=== PATIENT | female | born 1980 | race Caucasian/White ===

== ENCOUNTER 2019-09-13 12:43 | Emergency (ER) | payer OTHER ==
[~2019-09-13] VITALS: Ht 167.6 cm; Wt 95.0 kg
[2019-09-13 13:12] VITALS: Ht 167.6 cm; Wt 95.0 kg
[2019-09-13] MEDS ORDERED: ALDOMET250 MG PO (13:13)
[2019-09-13] MEDS ORDERED: PRENAVITE1 TAB PO (13:13)
[2019-09-13 13:37] LABS: BASOPHILS 0.1 % (0-2); EOSINOPHILS 0.9 % (0-7); HEMATOCRIT 40.9 % (36.0-48.0); HEMOGLOBIN 14.2 g/dL (12-16); IMMATURE GRANULOCYTES 0.3 % (0-5); LYMPHOCYTES 13.9 % (15-50); MCH 29.4 pg (26.0-34.0); MCHC 34.7 g/dL (31.0-37.0); MCV 84.7 fL (80.0-100.0); MEAN PLATELET VOLUME 10.1 fL (7.4-10.4); MONOCYTES 4.1 % (2-11); NEUTROPHILS 80.7 % (40-80); PLATELET COUNT 226 10x3/uL (130-400); RBC 4.83 10x6/uL (4.00-5.40); RDW 13.8 % (11.5-14.5); WBC 18.7 10x3/uL (4.8-10.8)
[2019-09-13 13:48] LABS: BILIRUBIN NEGATIVE (NEGATIVE); GLUCOSE NEGATIVE (NEGATIVE); KETONE MODERATE mg/dL (NEGATIVE); NITRITE NEGATIVE (NEGATIVE); SPECIFIC GRAVITY 1.015 (1.005-1.020); UROBILINOGEN NORMAL (NORMAL)
[2019-09-13 13:50] LABS: CALC OSMOLALITY 261 mosm/kg (275-300); CALCIUM 8.3 mg/dL (8.5-10.1); CARBON DIOXIDE 27.2 mmol/L (21.0-32.0); CHLORIDE - SERUM 99 mmol/L (98-107); CREATININE - SERUM 0.6 mg/dL (0.6-1.3); GLUCOSE 105 mg/dL (74-106); POTASSIUM - SERUM 3.5 mmol/L (3.5-5.1); SODIUM 132 mmol/L (136-145); UREA NITROGEN 5 mg/dL (7-18); eGFR NON AFRICAN AMERICAN > 90 mL/min (90-120)
[2019-09-13 13:51] LABS: HCG SERUM POSITIVE (NEGATIVE)
[2019-09-13] MEDS ORDERED: DULCOLAX STOOL100 MG PO (14:09)
[2019-09-13 14:18] LABS: ALKALINE PHOSPHATASE 94 U/L (30-120); ALT (SGPT) 14 U/L (10-68); AMYLASE - SERUM 295 U/L (25-115); BILIRUBIN - TOTAL 0.18 mg/dL (0.2-1.3); HCG - QUANTITATIVE (MATERNAL) 10666 mIU/mL; LIPASE 1077 U/L (73-393); PROTEIN - SERUM 7.2 g/dL (6.4-8.2)
[2019-09-13 14:40] VITALS: BP 144/65
== END 2019-09-13 14:39 | disposition home or self-care (01) ==
LOC: D.ER 12:43
PROVIDERS: Family Medicine
DX: O26.892 Other specified pregnancy related conditions, second trimester (principal); Z3A.18 18 weeks gestation of pregnancy; K59.00 Constipation, unspecified; R10.9 Unspecified abdominal pain; I10 Essential (primary) hypertension

== ENCOUNTER 2019-09-27 02:49 | Outpatient (CLI) | payer OTHER ==
[~2019-09-27 02:49] MED LIST: ALDOMET250 MG PO; DULCOLAX STOOL100 MG PO; PRENAVITE1 TAB PO
[2019-09-27 04:59] LABS: HEMATOCRIT 40.7 % (36.0-48.0); HEMOGLOBIN 13.8 g/dL (12-16); MCH 29.1 pg (26.0-34.0); MCHC 33.9 g/dL (31.0-37.0); MCV 85.9 fL (80.0-100.0); MEAN PLATELET VOLUME 10.6 fL (7.4-10.4); PLATELET COUNT 247 10x3/uL (130-400); RBC 4.74 10x6/uL (4.00-5.40); RDW 13.6 % (11.5-14.5); WBC 21.3 10x3/uL (4.8-10.8)
[2019-09-27 05:06] LABS: GLUCOSE 100 mg/dL (NEGATIVE); NITRITE NEGATIVE (NEGATIVE); SPECIFIC GRAVITY 1.025 (1.005-1.020)
[2019-09-27 05:07] LABS: BILIRUBIN NEGATIVE (NEGATIVE); KETONE NEGATIVE (NEGATIVE); UROBILINOGEN NORMAL (NORMAL)
[2019-09-27 05:10] LABS: BACTERIA MANY /hpf (NEGATIVE); EPITHELIAL CELLS 0-5 /hpf (0-5); RED CELLS - URINE 0-5 /hpf (0-5); WHITE CELLS - URINE 0-5 /hpf (NEGATIVE)
[2019-09-27 05:42] LABS: LIPASE 1208 U/L (73-393)
[2019-09-27 05:43] LABS: AMYLASE - SERUM 429 U/L (25-115)
[2019-09-27 05:45] LABS: EOSINOPHILS 5 % (0-7); LYMPHOCYTES 10 % (15-50); MONOCYTES 4 % (2-11); NEUTROPHILS 78 % (40-80); PLATELET ESTIMATE NORMAL
[2019-09-27 09:48] LABS: ALKALINE PHOSPHATASE 119 U/L (30-120); ALT (SGPT) 16 U/L (10-68); BILIRUBIN - TOTAL 0.43 mg/dL (0.2-1.3); CALC OSMOLALITY 264 mosm/kg (275-300); CARBON DIOXIDE 25.3 mmol/L (21.0-32.0); CHLORIDE - SERUM 99 mmol/L (98-107); CREATININE - SERUM 0.7 mg/dL (0.6-1.3); GLUCOSE 104 mg/dL (74-106); POTASSIUM - SERUM 3.5 mmol/L (3.5-5.1); PROTEIN - SERUM 6.6 g/dL (6.4-8.2); SODIUM 134 mmol/L (136-145); UREA NITROGEN 4 mg/dL (7-18); eGFR NON AFRICAN AMERICAN > 90 mL/min (90-120)
[2019-09-27 16:38] VITALS: BMI 33.8
== END 2019-09-27 18:45 ==
LOC: D.LDO 02:49 → D.LD 09:27 → D.LDO 18:45
PROVIDERS: Surgery; ATTEND Obstetrics & Gynecology
DX: O26.899 Other specified pregnancy related conditions, unspecified trimester (principal); Z3A.00 Weeks of gestation of pregnancy not specified; R10.9 Unspecified abdominal pain; R11.2 Nausea with vomiting, unspecified

== ENCOUNTER 2019-11-15 09:59 | Outpatient (CLI) | payer OTHER ==
[2019-11-15 10:52] LABS: BASOPHILS 0.2 % (0-2); EOSINOPHILS 1.9 % (0-7); HEMATOCRIT 38.1 % (36.0-48.0); HEMOGLOBIN 12.8 g/dL (12-16); IMMATURE GRANULOCYTES 0.6 % (0-5); LYMPHOCYTES 11.2 % (15-50); MCH 29.4 pg (26.0-34.0); MCHC 33.6 g/dL (31.0-37.0); MCV 87.4 fL (80.0-100.0); MEAN PLATELET VOLUME 10.2 fL (7.4-10.4); MONOCYTES 3.6 % (2-11); NEUTROPHILS 82.5 % (40-80); PLATELET COUNT 213 10x3/uL (130-400); RBC 4.36 10x6/uL (4.00-5.40); RDW 13.8 % (11.5-14.5); WBC 19.2 10x3/uL (4.8-10.8)
[2019-11-15 11:05] LABS: CALC OSMOLALITY 263 mosm/kg (275-300); CALCIUM 7.9 mg/dL (8.5-10.1); CARBON DIOXIDE 21.8 mmol/L (21.0-32.0); CHLORIDE - SERUM 101 mmol/L (98-107); CREATININE - SERUM 0.8 mg/dL (0.6-1.3); POTASSIUM - SERUM 3.1 mmol/L (3.5-5.1); SODIUM 131 mmol/L (136-145); UREA NITROGEN 5 mg/dL (7-18); eGFR NON AFRICAN AMERICAN 85 mL/min (90-120)
[2019-11-15 11:08] LABS: ALBUMIN 2.6 g/dL (3.4-5.0); ALKALINE PHOSPHATASE 114 U/L (30-120); ALT (SGPT) 12 U/L (10-68); GLUCOSE 166 mg/dL (74-106); PROTEIN - SERUM 6.3 g/dL (6.4-8.2); URIC ACID 3.3 mg/dL (2.6-7.2)
[2019-11-15 11:13] LABS: BILIRUBIN NEGATIVE (NEGATIVE); GLUCOSE NEGATIVE (NEGATIVE); KETONE NEGATIVE (NEGATIVE); NITRITE NEGATIVE (NEGATIVE); SPECIFIC GRAVITY 1.005 (1.005-1.020); UROBILINOGEN NORMAL (NORMAL)
[2019-11-16 14:37] LABS: PROTEIN - URINE 9.5 mg/dL (0.0-11.9)
== END 2019-11-15 12:23 | disposition home or self-care (01) ==
LOC: D.LDO 09:59
PROVIDERS: ATTEND Obstetrics & Gynecology
DX: O16.2 Unspecified maternal hypertension, second trimester (principal); Z3A.27 27 weeks gestation of pregnancy

== ENCOUNTER 2020-01-17 21:28 | Inpatient (IN) | payer OTHER ==
[~2020-01-17] VITALS: Ht 167.6 cm; Wt 95.0 kg
[2020-01-17 21:43] LABS: UDS - AMPHET NEGATIVE QUAL (NEGATIVE); UDS - BARB NEGATIVE QUAL (NEGATIVE); UDS - BENZO NEGATIVE QUAL (NEGATIVE); UDS - COCAINE NEGATIVE QUAL (NEGATIVE); UDS - OPIATE NEGATIVE QUAL (NEGATIVE); UDS - PCP NEGATIVE QUAL (NEGATIVE); UDS - THC NEGATIVE QUAL (NEGATIVE)
[2020-01-17 21:52] LABS: HEMATOCRIT 38.6 % (36.0-48.0); HEMOGLOBIN 13.3 g/dL (12-16); MCH 29.8 pg (26.0-34.0); MCHC 34.5 g/dL (31.0-37.0); MCV 86.5 fL (80.0-100.0); MEAN PLATELET VOLUME 10.4 fL (7.4-10.4); PLATELET COUNT 161 10x3/uL (130-400); RBC 4.46 10x6/uL (4.00-5.40); RDW 13.9 % (11.5-14.5); WBC 27.3 10x3/uL (4.8-10.8)
[2020-01-17 22:10] LABS: ALBUMIN 2.4 g/dL (3.4-5.0); BILIRUBIN - TOTAL 0.28 mg/dL (0.2-1.3); CALCIUM 8.6 mg/dL (8.5-10.1); CARBON DIOXIDE 20.7 mmol/L (21.0-32.0); CREATININE - SERUM 1.1 mg/dL (0.6-1.3); POTASSIUM - SERUM 3.7 mmol/L (3.5-5.1); PROTEIN - SERUM 6.5 g/dL (6.4-8.2)
[2020-01-17 22:20] LABS: EOSINOPHILS 3 % (0-7); LYMPHOCYTES 14 % (15-50); MONOCYTES 6 % (2-11); NEUTROPHILS 71 % (40-80); PLATELET ESTIMATE NORMAL
--- NOTE | 2020-01-17 22:54 | NUR ---
NOTIFIED OF PT REQUEST FOR PAIN MED AND D/W MD CTX PATTERN EVERY 1 MIN. NEW ORDERS NOTED TO DC CYTOTEC
[2020-01-17 23:02] VITALS: BP 111/59; Ht 167.6 cm; Wt 95.0 kg
[2020-01-18 03:02] LABS: BILIRUBIN NEGATIVE (NEGATIVE); GLUCOSE 100 mg/dL (NEGATIVE); KETONE NEGATIVE (NEGATIVE); NITRITE NEGATIVE (NEGATIVE); UROBILINOGEN NORMAL (NORMAL)
[2020-01-18 03:03] LABS: BACTERIA MODERATE /hpf (NEGATIVE); EPITHELIAL CELLS 0-5 /hpf (0-5); RED CELLS - URINE 0-5 /hpf (0-5); WHITE CELLS - URINE 0-5 /hpf (NEGATIVE)
[2020-01-18 03:04] LABS: CALCIUM OXALATE CRYSTALS 0-5 /hpf (NONE SEEN)
[2020-01-18 05:09] LABS: INR 1.24 (0.85-1.17); PROTIME 15.5 SECONDS (11.6-15.0)
[2020-01-18 05:14] LABS: FIBRINOGEN 153 mg/dL (239-481); RBC 3.42 10x6/uL (4.00-5.40); WBC 36.7 10x3/uL (4.8-10.8)
[2020-01-18 05:15] LABS: BASOPHILS 0.1 % (0-2); CALCIUM 8.2 mg/dL (8.5-10.1); CARBON DIOXIDE 24.6 mmol/L (21.0-32.0); CREATININE - SERUM 1.2 mg/dL (0.6-1.3); EOSINOPHILS 0.1 % (0-7); HEMATOCRIT 29.6 % (36.0-48.0); IMMATURE GRANULOCYTES 2.3 % (0-5); LYMPHOCYTES 5.8 % (15-50); MCH 29.2 pg (26.0-34.0); MCHC 33.8 g/dL (31.0-37.0); MCV 86.5 fL (80.0-100.0); MEAN PLATELET VOLUME 10.4 fL (7.4-10.4); MONOCYTES 3.5 % (2-11); NEUTROPHILS 88.2 % (40-80); PLATELET COUNT 117 10x3/uL (130-400)
[2020-01-18 05:21] LABS: ALBUMIN 2.1 g/dL (3.4-5.0); BILIRUBIN - TOTAL 0.2 mg/dL (0.2-1.3); PROTEIN - SERUM 5.4 g/dL (6.4-8.2)
[2020-01-18 05:23] LABS: ANION GAP 13.1 mmol/L (8-16); POTASSIUM - SERUM 4.7 mmol/L (3.5-5.1)
[2020-01-18 05:43] LABS: D-DIMER-QUANTITATIVE > 20.00 ug/mLFEU (0.20-0.54)
[2020-01-18 07:22] VITALS: BP 121/64
--- NOTE | 2020-01-18 07:22 | NUR ---
SHIFT ASSESSMENT COMPLETED PER FLOWSHEET. VSS. FUNDUS FIRM, MIDLINE AND U1 WITH MODERATE AMT RUBRA LOCHIA, NO CLOTS NOTED. PERICARE DONE. PADS AND CHUX CHANGED. PT ABLE TO [place]. DENIES PAIN AND NEEDS. SIGNIFICANT OTHER IN ROOM LOOKING AND IN [facility] UNDER LIGHT. SIGNIFICANT OTHER ASKS STAFF TO LOOK AT 'S COLOR AND CHECK FOR HEARTBEAT, STATES HE'S STILL WARM, EXPLAINED TO THAT WARMTH IS FROM LIGHT AND HEARTBEAT THAT HE IS FEELING IS LIKELY HIS OWN PULSE. STATES THAT HE HAS SEEN INFANT OPEN EYES AND MOVE. PT REASSURES SIGNIFICANT OTHER THAT HAS PASSED AND IS NOT LIVING. DISCUSSED MOVING TO NEW ROOM WITH PT, VERBALOZES UNDERSTANDING AND AGREEMENT. DISCUSSED WITH BOTH TAKING TO COOLER, FOB REFUSES. STATES THAT HE IS GOING TO KEEP WITH HIM. PT AMBULATORY TO ROOM 1276 FOR CONTINUED PP CARE. ORIENTED TO ROOM, CALL LIGHT USE AND BR, VERBALIZES UNDERSTANDING. BED IN LOW POSITION WITH SRUP X2. CALL LIGHT AND PHONE WITHIN REACH. WILL CONTINUE TO MONITOR.
--- NOTE | 2020-01-18 07:43 | NUR ---
SITTING IN HIGH FOWLERS POSITION. BECOMES TEARFUL. QUESTIONS REGARDING ORGAN DONATION ANSWERED AND REINFORCED WITH PT THAT [employer] PLANT MANAGER WOULD HAVE TO BE CONTACTED TO ANSWER MOST QUESTIONS REGARDING LENGTH OF TIME THAT TISSUE IS HARVESTABLE, VERBALIZES UNDERSTANDING. CHAPLE SERVICES OFFERED AND DECLINED AT THIS TIME. STATES THAT SHE HAS ACCEPTED INFANT LOSS BUT IS CONCERNED FOR SIGNIFICANT OTHER. PT VERBALIZES THAT SHE FEELS HIS PARENTS MAY HAVE TO COME TO HELP SUPPORT HIM AND TO "GET HIM TO REALITY OF WHAT HAS HAPPENED." STATES THAT SHE KNOWS VISITOR RESTRICTIONS ARE IN PLACE, CONTACTED TOÑO, MILL OPERATOR AND DISCUSSED SITUATION. STATES THAT EXPECTION CAN BE MADE AND SHE WOULD NOTIFY BOTH ENTRANCES. PT NOTIFIED AND VERBALIZES APPRECIATION.
--- NOTE | 2020-01-18 08:07 | NUR ---
ROBERTA POLYGRAPH OPERATOR CALLS UNIT IN REGARDS TO INFANT TO DISCUSS IF HAD BEEN PLACED IN COOLER. FABIAN, DIRECTOR DATA ANALYTICS INFORMED THAT FOB HAD NOT GIVEN PERMISSION FOR INFANT TO BE TAKE FROM ROOM. PER FABIAN, IS BEING RELEASED AND IS UNABLE TO BE USED FOR DONATION. WILL NOTIFY PT.
--- NOTE | 2020-01-18 08:32 | NUR ---
UP TO VOID. DENIES DIZZINESS AND LIGHTHEADEDNESS. VOIDED 700 MLS WITH CLOT THE SIZE OF HARD BOILED EGG PASSED. BACK TO BED, CONTINUES TO DENY DIZZINESS/LIGHTHEADEDNESS. FUNDUS FIRM, MIDLINE AND U1 WITH SMALL RUBRA LOCHIA, NO CLOTS NOTED TO PERIPADS. SIGNFICANT OTHER NOT IN ROOM AT THIS TIME, STATES THAT SHE ASK HIM TO LEAVE TO CARE FOR OLDER CHILD AT HOME. QUESTIONS REGARDING VISITOR AND VISITATION ANSWERED, PT VERBALIZES UNDERSTANDING STATES THAT HER MOTHER IS GOING TO COME HELP HER MAKE DECISIONS. PT ALSO INFORMED THAT [facility] HAD RELEASED INFANT AND INFANT WAS NO LONGER A CANDIDATE FOR ORGAN/TISSUE DONATION D/T NOT BEING COOLED, VERBALIZES UNDERSTANDING AND DENIES WANTING TO SPEAK WITH [facility] ADULT BASIC EDUCATION TEACHER. INFANT REMAINS IN ROOM WITH PT D/T PT REQUEST FOR BONDING TIME, STATES "I'VE ONLY GOTTEN TO HOLD HIM FOR A FEW MINUTES BECAUSE I WAS TRYING TO LET JAD HAVE HIS TIME WITH HIM." LIGHTS OFF PER PT REQUEST. DENIES NEEDS. BED IN LOW POSITION WITH SRUP X2. CALL LIGHT AND PHONE WITHIN REACH. WILL CONTINUE TO MONITOR.
--- NOTE | 2020-01-18 09:21 | NUR ---
DR. RAMIREZ CALLS UNIT, UPDATE ON PT STATUS GIVEN. PER DR. RAMIREZ HE WILL ROUND ON PT FOLLOWING COMPLETION OF CLINIC.
--- NOTE | 2020-01-18 10:14 | NUR ---
PT'S MOTHER ON UNIT AND TAKEN TO ROOM. PT JUST PICKED UP FROM [facility]. REQUEST TIME TO [place] WITH WITH HER MOTHER IN ROOM PRIOR TO RN TAKING V/S. DENIES PAIN AND NEEDS. BED IN LOW POSITION WITH SRUP X2. CALL LIGHT AND PHONE WITHIN REACH. WILL CONTINUE TO MONITOR.
[2020-01-18 10:38] VITALS: BP 135/66
--- NOTE | 2020-01-18 10:38 | NUR ---
UP TO VOID. VOIDED 700 MLS IN HAT, NO CLOTS NOTED. PERICARE DONE PER PT. VSS. FUNDUS FIRM, MIDLINE AND U1 WITH SMALL RUBRA LOCHIA, NO CLOTS NOTED. PT REQUEST PAIN MEDICATION AT THIS TIME D/T PAIN WITH FUNDAL CHECK. STEADY GAIT NOTED. DENIES DIZZINESS AND LIGHTHEADEDNESS. PT'S MOTHER AT BEDSIDE, SUPPORTIVE AND ATTENTIVE. PT REQUEST LIST OF HOME PHONE NUMBERS TO CALL TO ASK QUESTIONS. STATES THAT SIGNIFICANT OTHER REMAINS AT HOME CARING FOR TODDLER AND SHE WOULD LIKE TO GET ARRANGEMENTS MADE BHARGAV. TO COOLER PER MOM REQUEST. STATES THAT SHE WOULD LIKE TO SEE INFANT AND WILL NOTIFY RN WHEN READY TO VIEW AGAIN.
--- NOTE | 2020-01-18 11:41 | NUR ---
BACK TO ROOM. LIST OF HOMES PROVIDED TO PT AND HER MOTHER. STATES THAT SIGNIFICANT OTHER WILL BE COMING BACK TO UNIT TO DISCUSS OPTIONS AND ASSIST WITH MAKING ARRANGEMENTS.
--- NOTE | 2020-01-18 12:26 | NUR ---
REQUESTS TO SHOWER FOLLOWING EATING LUNCH. STATES THAT HER MOTHER WILL REMAIN IN ROOM AND AT BEDSIDE WITH HER. REQUESTS TO TAKE NORCO FOLLOWING SHOWER. DENIES NEEDS AT THIS TIME. WILL CONTINUE TO MONITOR. PT ALSO REQUESTING TO D/C HOME BHARGAV, WILL DISCUSS WITH DR. RAMIREZ WHEN HE ROUNDS.
--- NOTE | 2020-01-18 13:01 | NUR ---
UP IN SHOWER. PT'S MOTHER REMAINS IN ROOM. DENIES DIZZINESS. STEADY GAIT NOTED. LINENS CHANGED.
--- NOTE | 2020-01-18 14:03 | NUR ---
AMBULATORY IN [place]. PT REQUESTED RN CALL [facility] AND [facility] TO FIND OUT COST OF CREMATION AND BURIAL AND IF CREMENTATORY IS PRESENT ON SITE. BOTH HOMES CONTACTED IN PT ROOM AND QUESTIONS AND ANSWERS REVIEWED WITH PT. VERBALIZES UNDERSTANDING. REQUESTS TO DISCUSS WITH MOTHER AND NOTIFY RN OF DECISION AT LATER TIME.
--- NOTE | 2020-01-18 14:53 | NUR ---
BACK TO ROOM. PT CALLS RN TO ROOM, REQUESTS THAT [facility] BE CONTACTED FOR REMOVAL OF INFANT. DENIES PAIN AND NEEDS AT THIS TIME. REFUSES V/S AT THIS TIME, STATES "I FEEL FINE AND NEED TO MAKE A FEW PHONE CALLS." PT'S MOTHER REMAINS WITH HER, SUPPORTIVE AND ATTENTIVE TO PT AND PT NEEDS.
--- NOTE | 2020-01-18 14:55 | NUR ---
SPOKE WITH [facility] REP. NOTIFIED OF NEED FOR REMOVAL OF . WILL SEND STAFF FOR REMOVAL.
--- NOTE | 2020-01-18 15:21 | NUR ---
[facility]LY[facility] BOOTHE REP ON UNIT. REQUESTS TO SPEAK WITH PT AND TAKEN TO ROOM.
--- NOTE | 2020-01-18 15:43 | NUR ---
CARLYN GARCIA REP OFF UNIT WITH INFANT.
--- NOTE | 2020-01-18 16:01 | NUR ---
C/O ABD CRAMPING 4-11/03. REQUESTS NORCO AND GIVEN PER REQUEST. DENIES ADDITIONAL NEEDS. LT AND RT A/C PIV, AND L FA PIV'S REMOVED, ALL WITH TIPS INTACT AND BANDAID APPLIED. DENIES ADDITIONAL NEEDS.
--- NOTE | 2020-01-18 16:30 | NUR ---
WRITTEN AND VERBAL DISCHARGE INSTRUCTIONS GIVEN. VERBALIZES UNDERSTANDING. PT PROVIDED WITH RESOLVE THROUGH SHARING PACKET, PFW PP CARE INSTRUCTIONS HANDOUT, SAVE YOUR LIFE HANDOUT, AND COMMUNITY RESOURCE HANDOUT PROVIDED. KEEP SAKE BOX ALSO PROVIDED WITH HAND AND FOOT PRINTS. DENIES QUESTIONS. PT REQUESTS TO EAT DINNER TRAY AND THEN LEAVE. STATES THAT SHE WILL CALL WITH CALL LIGHT WHEN READY TO LEAVE.
--- NOTE | 2020-01-18 17:16 | NUR ---
OFF UNIT IN W/C IN STABLE CONDITION TO AWAITING VECHILE.
== END 2020-01-18 17:16 | disposition home or self-care (01) | DRG 805 ==
LOC: D.LDO 21:28 → D.LD 22:11
PROVIDERS: ADMIT Obstetrics & Gynecology; ATTEND Obstetrics & Gynecology
PROC: 3E033VJ Introduction of Other Hormone into Peripheral Vein, Percutaneous Approach (ICD-10-PCS; 2020-01-17)
PROC: 10E0XZZ Delivery of Products of Conception, External Approach (ICD-10-PCS; principal; 2020-01-18)
DX: O36.4XX0 Maternal care for intrauterine death, not applicable or unspecified (principal); O45.93 Premature separation of placenta, unspecified, third trimester; Z37.1 Single stillbirth; Z3A.36 36 weeks gestation of pregnancy

== ENCOUNTER → 2020-02-02 17:11 | Outpatient (CLI) | payer OTHER ==
[2020-01-17 23:02] VITALS: BMI 33.8
--- NOTE | 2020-02-02 17:00 | NUR ---
TELEPHONE CALL MADE TO DR. RAMIREZ, INQUIRING ABOUT URINE THAT WAS DROPPED OFF IN THE LAB BY THE PT. DR. RAMIREZ WANTS A 24 HOUR URNE TOTAL PROTEIN ORDERED. BRYANNA IN THE LAB NOTIFIED, AND SHE DOES HAVE THE SPECIMEN.
[2020-02-02 18:00] LABS: PROTEIN - URINE 141.8 mg/dL (0.0-11.9)
== END | disposition home or self-care (01) ==
LOC: D.LDO 17:11
PROVIDERS: ATTEND Obstetrics & Gynecology
DX: I10 Essential (primary) hypertension (principal); P95 Stillbirth